=== PATIENT | female | born 1950 | race Caucasian/White ===

== ENCOUNTER → 2020-11-22 13:21 | Outpatient (BNVA) | payer MEDICARE, OTHER, SELFPAY | PROVIDERS: PCP Internal Medicine; Visit Provider Internal Medicine | DX: M10.9 Gout, unspecified (principal); N18.9 Chronic kidney disease, unspecified; M19.90 Unspecified osteoarthritis, unspecified site; Z79.52 Long term (current) use of systemic steroids; Z11.59 Encounter for screening for other viral diseases; Z11.1 Encounter for screening for respiratory tuberculosis | CPT/HCPCS: 99204 ==

== ENCOUNTER 2020-11-22 15:25 | Outpatient (CLI) | payer MEDICARE, OTHER, SELFPAY ==
--- NOTE | 2020-11-22 15:30 | XR_ITS ---
WS: [id number] TECHNIQUE: 2 views of the left hand CLINICAL INFORMATION: N18.9 - Chronic kidney disease, unspecified COMPARISON: None. FINDINGS: Mild degenerative arthritis radiocarpal joint. Advanced degenerative changes at the first CMC. Normal metacarpals. Advanced degenerative narrowing involving the PIP and DIP joints with marginal osteophy haylee and a few small periarticular erosions. Ulnar subluxation at the fifth PIP joint. Soft tissue jerry ma. XR/XR hand LT 2V [id number] IMPRESSION: 1. Osteopenia. 2. Advanced degenerative narrowing at the first CMC. 3. Advanced degenerative narrowing PIP and DIP joints with marginal osteophyte s and a few small periarticular erosions.
--- NOTE | 2020-11-22 15:30 | XR_ITS ---
WS: [email or web address] ANKLE RIGHT TECHNIQUE: 2 views of the right ankle CLINICAL INFORMATION: N18.9 - Chronic kidney disease, unspecified COMPARISON: None. FINDINGS: Soft tissue edema. Normal ankle mortise. Normal talus. Normal medial lateral malleolus. Vascular calc ification. Small plantar calcaneal spur. XR/XR ankle RT 2V [id number] IMPRESSION: Soft tissue edema. Otherwise unremarkable right ankle.
--- NOTE | 2020-11-22 15:30 | XR_ITS ---
WS: [email or web address] ANKLE LEFT TECHNIQUE: 2 views of the left ankle CLINICAL INFORMATION: N18.9 - Chronic kidney disease, unspecified COMPARISON: None. FINDINGS: Soft tissue edema. Normal medial lateral malleolus. Normal ankle mortise. Vascular calcification. Sma ll plantar calcaneal spur. Normal talar dome. IMPRESSION: Soft tissue edema. Otherwise unremarkable left ankle.
--- NOTE | 2020-11-22 15:30 | XR_ITS ---
WS: [email or web address] FOOT LEFT TECHNIQUE: 2 views of the left foot CLINICAL INFORMATION: M25.50 - Pain in unspecified joint COMPARISON: None. FINDINGS: Osteopenia. Soft tissue edema. Normal metatarsals. Plantar calcaneal spur. Vascular calcification. Do rsal hypertrophic changes at the navicular. Chronic joint space narrowing involving the PIP and DIP j oints second through fifth digits with a few small periarticular erosions. Mild degenerative arthriti s at the TMT joint. Talus and calcaneus otherwise appear normal. XR/XR foot LT 2V [id number] IMPRESSION: 1. Osteopenia with soft tissue edema. 2. Chronic joint space narrowing involving the PIP and DIP joints second throu gh fifth digits with a few small periarticular erosions. 3. Plantar calcaneal spur.
--- NOTE | 2020-11-22 15:30 | XR_ITS ---
WS: [email or web address] FOOT RIGHT TECHNIQUE: 2 views of the right foot CLINICAL INFORMATION: M25.50 - Pain in unspecified joint COMPARISON: None. FINDINGS: Osteopenia. Soft tissue edema lower leg and foot. Normal metatarsals. Normal MCP joints. Tarsal bones are normal in appearance. Normal navicular. Degenerative narrowing involving the PIP and DIP joints second through fifth digits. Small plantar calcaneal spur. Vascular calcification. Normal talus and c alcaneus. XR/XR foot RT 2V [id number] IMPRESSION: 1. Osteopenia with soft tissue edema. 2. Normal talus and calcaneus. 3. Small plantar calcaneal spur. 4. Degenerative narrowing involving the PIP and DIP joints second through fift h digits.
--- NOTE | 2020-11-22 15:30 | XR_ITS ---
WS: [email or web address] TECHNIQUE: 2 views of the right hand CLINICAL INFORMATION: N18.9 - Chronic kidney disease, unspecified COMPARISON: None. FINDINGS: Osteopenia. Soft tissue edema. Advanced degenerative narrowing at the radiocarpal joint with [employer] wri st and widening of the scapholunate interval. Mild widening of the DRUJ. Normal metacarpals. Advanced degenerative changes involving PIP and DIP joints with marginal osteophytes. Mild ulnar subluxation at the fourth and fifth PIP joints. XR/XR hand RT 2V [id number] IMPRESSION: 1. Osteopenia. 2. Advanced degenerative narrowing involving the PIP and DIP joints with janessa nal osteophytes. 3. Changes of SLAC wrist with widening of the scapholunate interval. 4. Advanced narrowing at the radiocarpal joint.
== END 2020-11-22 15:26 | disposition home or self-care (01) ==
PROVIDERS: PCP Internal Medicine; Visit Provider Internal Medicine
DX: M25.50 Pain in unspecified joint (principal); N18.9 Chronic kidney disease, unspecified
CPT/HCPCS: 73120; 73600; 73620

== ENCOUNTER → 2021-08-22 15:00 | Outpatient (BNVA) | payer MEDICARE, OTHER, SELFPAY | PROVIDERS: PCP Internal Medicine; Visit Provider Internal Medicine | DX: M10.9 Gout, unspecified (principal); M19.90 Unspecified osteoarthritis, unspecified site; N18.9 Chronic kidney disease, unspecified; Z94.0 Kidney transplant status; Z79.52 Long term (current) use of systemic steroids | CPT/HCPCS: 99214 ==